=== PATIENT | female | born 1995 | race Caucasian/White ===

== ENCOUNTER 2018-07-15 04:39 | Emergency (ER) | payer MEDICAID ==
[2018-07-15 09:25] VITALS: BP 114/62
== END 2018-07-15 09:25 | disposition home or self-care (01) ==
LOC: ED 04:39
DX: S02.82XA Fracture of other specified skull and facial bones, left side, initial encounter for closed fracture (principal); Y04.0XXA Assault by unarmed brawl or fight, initial encounter; Y93.89 Activity, other specified; Y92.89 Other specified places as the place of occurrence of the external cause; Y99.8 Other external cause status